=== PATIENT | male | born 1990 | race Asian ===

== ENCOUNTER 2021-07-17 15:23 | Emergency (ER) | payer OTHER ==
[~2021-07-17] VITALS: Ht 172.7 cm; Wt 56.7 kg
[2021-07-17 20:18] LABS: HEMATOCRIT 53.5 % (42.0-52.0); MEAN CORPUSCULAR HEMOGLOBIN 30.7 pg (27.0-33.0); MEAN CORPUSCULAR HGB CONC 33.8 g/dl (32.0-36.5); MEAN CORPUSCULAR VOLUME 90.8 fl (80.0-96.0); PLATELET COUNT, AUTOMATED 218 10^3/uL (150-450); RED BLOOD COUNT 5.89 10^6/uL (4.30-6.10); WHITE BLOOD COUNT 5.5 10^3/uL (4.0-10.0)
[2021-07-17 20:20] LABS: HEMOGLOBIN 18.1 g/dl (13.5-17.5)
[2021-07-17 20:49] LABS: AMPHETAMINES LEVEL URINE NEGATIVE (NEGATIVE); BARBITURATES URINE NEGATIVE (NEGATIVE); BENZODIAZEPINES URINE NEGATIVE (NEGATIVE); CANNABINOIDS URINE NEGATIVE (NEGATIVE); COCAINE METABOLITE URINE NEGATIVE (NEGATIVE); METHADONE URINE NEGATIVE (NEGATIVE); OPIATES URINE NEGATIVE (NEGATIVE); PHENCYCLIDINE URINE NEGATIVE (NEGATIVE)
[2021-07-17 21:00] LABS: ACETAMINOPHEN LEVEL < 2.0 UG/ML (10.0-30.0); ALBUMIN 3.8 GM/DL (3.2-5.2); ALT/SGPT 53 U/L (12-78); BILIRUBIN,DIRECT 0.4 MG/DL (0.0-0.2); BILIRUBIN,TOTAL 1.3 MG/DL (0.2-1.0); BLOOD UREA NITROGEN 7 MG/DL (7-18); CARBON DIOXIDE LEVEL 28 MEQ/L (21-32); CHLORIDE LEVEL 104 MEQ/L (98-107); CREATININE FOR GFR 0.91 MG/DL (0.70-1.30); ETHYL ALCOHOL (ETHANOL) 0.083 % (0.000-0.010); GLOMERULAR FILTRATION RATE > 60.0 (>60); GLUCOSE, FASTING 113 MG/DL (70-100); POTASSIUM SERUM 3.6 MEQ/L (3.5-5.1); SALICYLATE LEVEL < 1.7 MG/DL (5.0-30.0); SODIUM LEVEL 140 MEQ/L (136-145); THYROID STIMULATING HORMONE 0.873 uIU/ML (0.358-3.740); TOTAL PROTEIN 7.2 GM/DL (6.4-8.2)
[2021-07-17 22:35] VITALS: BP 158/79
== END 2021-07-17 22:50 | disposition home or self-care (01) ==
LOC: M ED 15:23
DX: F10.129 Alcohol abuse with intoxication, unspecified (principal); F32.A Depression, unspecified; E86.0 Dehydration; R74.01 Elevation of levels of liver transaminase levels

== ENCOUNTER 2022-01-22 08:44 | Inpatient (IN) | payer OTHER ==
[~2022-01-22] VITALS: Ht 172.7 cm; Wt 56.9 kg
[~2022-01-22 08:44] MED LIST: FOLI1TAB11 PO; SERT50TA29 PO; VITMTA PO
[2022-01-22 09:48] LABS: HEMATOCRIT 46.3 % (42.0-52.0); HEMOGLOBIN 15.8 g/dl (13.5-17.5); MEAN CORPUSCULAR HEMOGLOBIN 32.3 pg (27.0-33.0); MEAN CORPUSCULAR VOLUME 94.7 fl (80.0-96.0); RED BLOOD COUNT 4.89 10^6/uL (4.30-6.10); WHITE BLOOD COUNT 4.8 10^3/uL (4.0-10.0)
[2022-01-22 09:49] LABS: MEAN CORPUSCULAR HGB CONC 34.1 g/dl (32.0-36.5); PLATELET COUNT, AUTOMATED 288 10^3/uL (150-450)
[2022-01-22 10:22] LABS: RSV AMPLIFICATION NEGATIVE (NEGATIVE)
[2022-01-22 10:39] LABS: ACETAMINOPHEN LEVEL < 2.0 UG/ML (10.0-30.0); ALBUMIN 3.8 GM/DL (3.2-5.2); ALT/SGPT 101 U/L (12-78); BILIRUBIN,DIRECT 0.2 MG/DL (0.0-0.2); BILIRUBIN,TOTAL 0.4 MG/DL (0.2-1.0); BLOOD UREA NITROGEN 5 MG/DL (7-18); CALCIUM LEVEL 9.1 MG/DL (8.5-10.1); CARBON DIOXIDE LEVEL 31 MEQ/L (21-32); CHLORIDE LEVEL 107 MEQ/L (98-107); CREATININE FOR GFR 0.69 MG/DL (0.70-1.30); ETHYL ALCOHOL (ETHANOL) 0.266 % (0.000-0.010); GLOMERULAR FILTRATION RATE > 60.0 (>60); GLUCOSE, FASTING 93 MG/DL (70-100); POTASSIUM SERUM 3.6 MEQ/L (3.5-5.1); SALICYLATE LEVEL < 1.7 MG/DL (5.0-30.0); SODIUM LEVEL 142 MEQ/L (136-145); TOTAL PROTEIN 7.4 GM/DL (6.4-8.2)
[2022-01-22 16:06] LABS: AMPHETAMINES LEVEL URINE NEGATIVE (NEGATIVE); BARBITURATES URINE NEGATIVE (NEGATIVE); BENZODIAZEPINES URINE NEGATIVE (NEGATIVE); CANNABINOIDS URINE NEGATIVE (NEGATIVE); COCAINE METABOLITE URINE NEGATIVE (NEGATIVE); METHADONE URINE NEGATIVE (NEGATIVE); OPIATES URINE NEGATIVE (NEGATIVE); PHENCYCLIDINE URINE NEGATIVE (NEGATIVE)
[2022-01-22] MEDS ORDERED: HOME MED LIST COMPLETE! XX SCH (18:05)
[2022-01-23] MEDS ORDERED: MOM 30ML SUSPENSION UDC PO PRN (12:50)
[2022-01-23] MEDS ORDERED: traZODone 50 MG TAB PO PRN (12:50)
[2022-01-23] MEDS ORDERED: MAALOX 30 ML SUSP *UDC PO PRN (12:50)
[2022-01-23] MEDS ORDERED: IBUPROFEN 400MG TAB PO PRN (12:50)
[2022-01-23 16:01] VITALS: BP 148/94
[2022-01-24 06:18] VITALS: BP 127/81
[2022-01-24] MEDS: ESCITALOPRAM OXALATE 5MG TABLET (LEXAPRO) PO SCH (10:44)
[2022-01-24] MEDS: NICOTINE 14 MG/24 HR TRANSDERMAL TD SCH (10:44)
[2022-01-24 16:41] VITALS: BP 140/88
[2022-01-24 21:06] LABS: HEPATITIS B CORE ANTIBODY IGM NEGATIVE (NEGATIVE); HEPATITIS B SURFACE ANTIGEN NEGATIVE (NEGATIVE); HEPATITIS C VIRUS ABY INDEX < 0.0 INDEX (<0.8)
[2022-01-25 06:16] VITALS: BP 127/76
[2022-01-25] MEDS: ESCITALOPRAM OXALATE 5MG TABLET (LEXAPRO) PO SCH (09:44)
[2022-01-25] MEDS: NICOTINE 14 MG/24 HR TRANSDERMAL TD SCH (09:45)
[2022-01-25 18:18] VITALS: BP 138/91
[2022-01-26 06:01] VITALS: BP 127/84
[2022-01-26] MEDS: ESCITALOPRAM OXALATE 10 MG TAB (LEXAPRO) PO SCH (09:00)
[2022-01-26 09:20] VITALS: BP 127/84
[2022-01-26] MEDS: ESCITALOPRAM OXALATE 5MG TABLET (LEXAPRO) PO SCH (09:28)
[2022-01-26] MEDS: NICOTINE 14 MG/24 HR TRANSDERMAL TD SCH (09:28)
[2022-01-26 16:38] VITALS: BP 140/88
[2022-01-27 06:41] VITALS: BP 116/74
[2022-01-27] MEDS: ESCITALOPRAM OXALATE 10 MG TAB (LEXAPRO) PO SCH (08:51)
[2022-01-27] MEDS: NICOTINE 14 MG/24 HR TRANSDERMAL TD SCH (08:51)
[2022-01-27 16:17] VITALS: BP 138/86
[2022-01-28 06:32] VITALS: BP 121/83
[2022-01-28] MEDS: ESCITALOPRAM OXALATE 10 MG TAB (LEXAPRO) PO SCH (09:24)
[2022-01-28] MEDS: NICOTINE 14 MG/24 HR TRANSDERMAL TD SCH (09:24)
[2022-01-28 16:26] VITALS: BP 138/84
[2022-01-29 06:16] VITALS: BP 132/88
[2022-01-29] MEDS: NICOTINE 14 MG/24 HR TRANSDERMAL TD SCH (09:00)
[2022-01-29] MEDS: ESCITALOPRAM OXALATE 10 MG TAB (LEXAPRO) PO SCH (09:29)
[2022-01-29 17:21] VITALS: BP 117/73
[2022-01-30 06:19] VITALS: BP 110/73
[2022-01-30] MEDS: NICOTINE 14 MG/24 HR TRANSDERMAL TD SCH (09:00)
[2022-01-30] MEDS: ESCITALOPRAM OXALATE 10 MG TAB (LEXAPRO) PO SCH (09:25)
[2022-01-30 18:17] VITALS: BP 131/85
[2022-01-31 06:13] VITALS: BP 127/81
[2022-01-31] MEDS: NICOTINE 14 MG/24 HR TRANSDERMAL TD SCH (09:00)
[2022-01-31] MEDS: ESCITALOPRAM OXALATE 10 MG TAB (LEXAPRO) PO SCH (09:18)
[2022-01-31 18:18] VITALS: BP 130/79
[2022-01-31] MEDS: PRAZOSIN 1 MG CAP PO SCH (20:45)
[2022-02-01 06:43] VITALS: BP 122/58
[2022-02-01] MEDS: NICOTINE 14 MG/24 HR TRANSDERMAL TD SCH (09:00)
[2022-02-01] MEDS: ESCITALOPRAM OXALATE 10 MG TAB (LEXAPRO) PO SCH (09:01)
[2022-02-01 19:28] VITALS: BP 153/74
[2022-02-01 20:38] VITALS: BP 140/99
[2022-02-01] MEDS: PRAZOSIN 1 MG CAP PO SCH (20:38)
[2022-02-02 06:14] VITALS: BP 125/62
[2022-02-02] MEDS: NICOTINE 14 MG/24 HR TRANSDERMAL TD SCH (08:39)
[2022-02-02] MEDS: ESCITALOPRAM OXALATE 10 MG TAB (LEXAPRO) PO SCH (08:39)
[2022-02-02] MEDS ORDERED: LEXA1TAB PO (08:54)
[2022-02-02] MEDS ORDERED: NICO14PA TD (08:54)
[2022-02-02] MEDS ORDERED: MINI1CAP PO (08:54)
== END 2022-02-02 11:19 | disposition home or self-care (01) | DRG 885 ==
LOC: M ED 08:44 → M ED INP 01-23 12:46 → M PSY 01-23 15:56
PROVIDERS: ADMIT Student in an Organized Health Care Education/Training Program; ATTEND Student in an Organized Health Care Education/Training Program
DX: F32.1 Major depressive disorder, single episode, moderate (principal); R45.851 Suicidal ideations; R30.0 Dysuria; F10.10 Alcohol abuse, uncomplicated

== ENCOUNTER 2022-02-12 21:03 | Inpatient (IN) | payer OTHER ==
[~2022-02-12] VITALS: Ht 172.7 cm; Wt 56.8 kg
[~2022-02-12 21:03] MED LIST changes: +LEXA1TAB PO; +MINI1CAP PO; +NICO14PA TD
[2022-02-12 22:09] LABS: HEMATOCRIT 45.5 % (42.0-52.0); HEMOGLOBIN 15.5 g/dl (13.5-17.5); MEAN CORPUSCULAR HEMOGLOBIN 31.4 pg (27.0-33.0); MEAN CORPUSCULAR HGB CONC 34.1 g/dl (32.0-36.5); MEAN CORPUSCULAR VOLUME 92.3 fl (80.0-96.0); PLATELET COUNT, AUTOMATED 293 10^3/uL (150-450); RED BLOOD COUNT 4.93 10^6/uL (4.30-6.10); WHITE BLOOD COUNT 5.1 10^3/uL (4.0-10.0)
[2022-02-12 22:44] LABS: RSV AMPLIFICATION NEGATIVE (NEGATIVE)
[2022-02-12 23:03] LABS: ACETAMINOPHEN LEVEL < 2.0 UG/ML (10.0-30.0); ALBUMIN 3.6 GM/DL (3.2-5.2); ALT/SGPT 61 U/L (12-78); BILIRUBIN,DIRECT 0.1 MG/DL (0.0-0.2); BILIRUBIN,TOTAL 0.3 MG/DL (0.2-1.0); BLOOD UREA NITROGEN 2 MG/DL (7-18); CALCIUM LEVEL 8.6 MG/DL (8.5-10.1); CARBON DIOXIDE LEVEL 24 MEQ/L (21-32); CHLORIDE LEVEL 112 MEQ/L (98-107); CREATININE FOR GFR 0.68 MG/DL (0.70-1.30); ETHYL ALCOHOL (ETHANOL) 0.281 % (0.000-0.010); GLOMERULAR FILTRATION RATE > 60.0 (>60); GLUCOSE, FASTING 92 MG/DL (70-100); POTASSIUM SERUM 3.6 MEQ/L (3.5-5.1); SALICYLATE LEVEL < 1.7 MG/DL (5.0-30.0); SODIUM LEVEL 147 MEQ/L (136-145); TOTAL PROTEIN 7.1 GM/DL (6.4-8.2)
[2022-02-12 23:39] LABS: AMPHETAMINES LEVEL URINE NEGATIVE (NEGATIVE); BARBITURATES URINE NEGATIVE (NEGATIVE); BENZODIAZEPINES URINE NEGATIVE (NEGATIVE); CANNABINOIDS URINE NEGATIVE (NEGATIVE); COCAINE METABOLITE URINE NEGATIVE (NEGATIVE); METHADONE URINE NEGATIVE (NEGATIVE); OPIATES URINE NEGATIVE (NEGATIVE); PHENCYCLIDINE URINE NEGATIVE (NEGATIVE)
[2022-02-13] MEDS ORDERED: HOME MED LIST COMPLETE! XX SCH (02:40)
[2022-02-13] MEDS ORDERED: LEXA1TAB PO (02:40)
[2022-02-13] MEDS ORDERED: PRAZ1CAP PO (02:40)
[2022-02-13] MEDS ORDERED: PRAZOSIN 1 MG CAP PO SCH (09:00)
[2022-02-13] MEDS: ESCITALOPRAM OXALATE 10 MG TAB (LEXAPRO) PO SCH (09:45)
[2022-02-13] MEDS: PRAZOSIN 1 MG CAP PO SCH (21:00)
[2022-02-14] MEDS: ESCITALOPRAM OXALATE 10 MG TAB (LEXAPRO) PO SCH (13:00)
[2022-02-14] MEDS: PRAZOSIN 1 MG CAP PO SCH (20:33)
[2022-02-15] MEDS: ESCITALOPRAM OXALATE 10 MG TAB (LEXAPRO) PO SCH (10:11)
[2022-02-15] MEDS: PRAZOSIN 1 MG CAP PO SCH (20:13)
[2022-02-16] MEDS: ESCITALOPRAM OXALATE 10 MG TAB (LEXAPRO) PO SCH (11:04)
[2022-02-16] MEDS ORDERED: ACETAMINOPHEN TAB 650MG DOSE (2X325MG) PO PRN (12:15)
[2022-02-16] MEDS ORDERED: MAALOX 30 ML SUSP *UDC PO PRN (12:15)
[2022-02-16] MEDS ORDERED: hydrOXYzine 50 MG TAB PO PRN (12:15)
[2022-02-16] MEDS ORDERED: MOM 30ML SUSPENSION UDC PO PRN (12:15)
[2022-02-16 14:42] VITALS: BP 135/93
[2022-02-16] MEDS: PRAZOSIN 1 MG CAP PO SCH (20:11)
[2022-02-17] MEDS: ESCITALOPRAM OXALATE 10 MG TAB (LEXAPRO) PO SCH ×2 (09:31)
[2022-02-17 18:10] VITALS: BP 145/89
[2022-02-17 20:32] VITALS: BP 156/102
[2022-02-17] MEDS: PRAZOSIN 1 MG CAP PO SCH (20:32)
[2022-02-17 21:30] VITALS: BP 148/110
[2022-02-17 22:48] VITALS: BP 140/114
[2022-02-18] MEDS ORDERED: **hydrALAZINE** 10 MG TAB PO ONE
[2022-02-18 00:40] VITALS: BP 124/78
[2022-02-18 06:58] VITALS: BP 147/92
[2022-02-18] MEDS: ESCITALOPRAM OXALATE 10 MG TAB (LEXAPRO) PO SCH (09:56)
[2022-02-18 16:32] VITALS: BP 137/90
[2022-02-18] MEDS: PRAZOSIN 1 MG CAP PO SCH (20:11)
[2022-02-18] MEDS: traZODone 50 MG TAB PO PRN (23:00)
[2022-02-19 06:25] VITALS: BP 116/59
[2022-02-19] MEDS: ESCITALOPRAM OXALATE 10 MG TAB (LEXAPRO) PO SCH (09:12)
[2022-02-19 16:43] VITALS: BP 126/85
[2022-02-19 20:00] VITALS: BP 140/100
[2022-02-19] MEDS: PRAZOSIN 1 MG CAP PO SCH (20:00)
[2022-02-19] MEDS: traZODone 50 MG TAB PO PRN (20:01)
[2022-02-20 06:27] VITALS: BP 141/86
[2022-02-20] MEDS: ESCITALOPRAM OXALATE 10 MG TAB (LEXAPRO) PO SCH (08:37)
== END 2022-02-20 14:28 | disposition home or self-care (01) | DRG 885 ==
LOC: M ED 21:03 → M ED INP 02-16 12:13 → M PSY 02-16 14:55
PROVIDERS: ADMIT Student in an Organized Health Care Education/Training Program; ATTEND Psychiatry & Neurology Psychiatry
DX: F33.9 Major depressive disorder, recurrent, unspecified (principal); R45.851 Suicidal ideations; E87.0 Hyperosmolality and hypernatremia; F43.10 Post-traumatic stress disorder, unspecified; F10.10 Alcohol abuse, uncomplicated; F43.0 Acute stress reaction; Z79.899 Other long term (current) drug therapy

== ENCOUNTER 2022-04-21 12:23 | Emergency (ER) | payer OTHER ==
[~2022-04-21] VITALS: Ht 172.7 cm; Wt 56.9 kg
[~2022-04-21 12:23] MED LIST changes: +PRAZ1CAP PO
[2022-04-21 13:14] LABS: HEMATOCRIT 41.2 % (42.0-52.0); HEMOGLOBIN 13.9 g/dl (13.5-17.5); MEAN CORPUSCULAR HGB CONC 33.7 g/dl (32.0-36.5); PLATELET COUNT, AUTOMATED 276 10^3/uL (150-450); RED BLOOD COUNT 4.48 10^6/uL (4.30-6.10)
[2022-04-21 13:37] LABS: ETHYL ALCOHOL (ETHANOL) 0.182 % (0.000-0.010)
[2022-04-21 13:38] LABS: ACETAMINOPHEN LEVEL < 2.0 UG/ML (10.0-20.0); BILIRUBIN,DIRECT 0.2 MG/DL (<0.4); SALICYLATE LEVEL < 3.0 MG/DL (<30)
[2022-04-21 13:39] LABS: ALBUMIN 3.9 G/DL (3.2-5.2); ALKALINE PHOSPHATASE 66 U/L (46-116); ALT/SGPT 39 U/L (7.0-40); AST/SGOT 30 U/L (<34); BILIRUBIN,TOTAL 0.5 MG/DL (0.3-1.2); BLOOD UREA NITROGEN 9 MG/DL (9-23); CALCIUM LEVEL 8.8 MG/DL (8.5-10.1); CARBON DIOXIDE LEVEL 25 MMOL/L (20-31); CHLORIDE LEVEL 110 MMOL/L (98-107); CREATININE FOR GFR 0.64 MG/DL (0.70-1.30); GLOMERULAR FILTRATION RATE > 60.0 (>60); GLUCOSE, FASTING 87 MG/DL (60-100); POTASSIUM SERUM 3.9 MMOL/L (3.5-5.1); SODIUM LEVEL 143 MMOL/L (136-145); TOTAL PROTEIN 7.1 G/DL (5.7-8.2)
[2022-04-21 13:41] LABS: THYROID STIMULATING HORMONE 0.809 uIU/ML (0.55-4.78)
[2022-04-21 13:42] LABS: RSV AMPLIFICATION NEGATIVE (NEGATIVE)
[2022-04-21] MEDS ORDERED: HOME MED LIST COMPLETE! XX SCH (19:35)
[2022-04-21 19:53] LABS: BARBITURATES URINE NEGATIVE (NEGATIVE); COCAINE METABOLITE URINE NEGATIVE (NEGATIVE); METHADONE URINE NEGATIVE (NEGATIVE); OPIATES URINE NEGATIVE (NEGATIVE); PHENCYCLIDINE URINE NEGATIVE (NEGATIVE)
[2022-04-21 19:54] LABS: AMPHETAMINES LEVEL URINE NEGATIVE (NEGATIVE); BENZODIAZEPINES URINE NEGATIVE (NEGATIVE); CANNABINOIDS URINE NEGATIVE (NEGATIVE)
[2022-04-22] MEDS: ESCITALOPRAM OXALATE 10 MG TAB (LEXAPRO) PO SCH (09:14)
[2022-04-22] MEDS ORDERED: PRAZOSIN 1 MG CAP PO SCH (21:00)
[2022-04-22 23:15] VITALS: BP 116/71
[2022-04-23] MEDS: ESCITALOPRAM OXALATE 10 MG TAB (LEXAPRO) PO SCH (09:00)
[2022-04-23 13:47] VITALS: BP 128/74
== END 2022-04-23 14:23 | disposition home or self-care (01) ==
LOC: M ED 12:23 → EDBD 12:23 → M ED 04-23 14:23
DX: F10.129 Alcohol abuse with intoxication, unspecified (principal); F32.A Depression, unspecified; R45.851 Suicidal ideations; R94.31 Abnormal electrocardiogram [ECG] [EKG]; F17.200 Nicotine dependence, unspecified, uncomplicated; Z79.899 Other long term (current) drug therapy

== ENCOUNTER 2022-05-29 09:40 | Inpatient (IN) | payer OTHER ==
[~2022-05-29] VITALS: Ht 172.7 cm; Wt 59.2 kg
[2022-05-29 11:36] LABS: HEMOGLOBIN 15.6 g/dl (13.5-17.5); MEAN CORPUSCULAR HEMOGLOBIN 30.8 pg (27.0-33.0); MEAN CORPUSCULAR HGB CONC 34.7 g/dl (32.0-36.5); MEAN CORPUSCULAR VOLUME 88.8 fl (80.0-96.0); PLATELET COUNT, AUTOMATED 263 10^3/uL (150-450); RED BLOOD COUNT 5.07 10^6/uL (4.30-6.10)
[2022-05-29 12:07] LABS: ETHYL ALCOHOL (ETHANOL) 0.162 % (0.000-0.010)
[2022-05-29 12:08] LABS: ACETAMINOPHEN LEVEL < 2.0 UG/ML (10.0-20.0)
[2022-05-29 12:09] LABS: SALICYLATE LEVEL < 3.0 MG/DL (<30)
[2022-05-29 12:12] LABS: ALKALINE PHOSPHATASE 104 U/L (46-116); ALT/SGPT 55 U/L (7.0-40); AST/SGOT 50 U/L (<34); BILIRUBIN,DIRECT 0.2 MG/DL (<0.4); BILIRUBIN,TOTAL 0.9 MG/DL (0.3-1.2); BLOOD UREA NITROGEN 7 MG/DL (9-23); CALCIUM LEVEL 9.7 MG/DL (8.5-10.1); CARBON DIOXIDE LEVEL 26 MMOL/L (20-31); CHLORIDE LEVEL 104 MMOL/L (98-107); GLOMERULAR FILTRATION RATE > 60.0 (>60); GLUCOSE, FASTING 89 MG/DL (60-100); POTASSIUM SERUM 3.8 MMOL/L (3.5-5.1); SODIUM LEVEL 141 MMOL/L (136-145); THYROID STIMULATING HORMONE 2.915 uIU/ML (0.55-4.78); TOTAL PROTEIN 7.2 G/DL (5.7-8.2)
[2022-05-29] MEDS ORDERED: FOLI1TAB11 PO (12:28)
[2022-05-29] MEDS ORDERED: VITA100093 PO (12:28)
[2022-05-29] MEDS ORDERED: HOME MED LIST COMPLETE! XX SCH (12:30)
[2022-05-29 17:35] LABS: AMPHETAMINES LEVEL URINE NEGATIVE (NEGATIVE); BARBITURATES URINE NEGATIVE (NEGATIVE); BENZODIAZEPINES URINE NEGATIVE (NEGATIVE); CANNABINOIDS URINE NEGATIVE (NEGATIVE); COCAINE METABOLITE URINE NEGATIVE (NEGATIVE); METHADONE URINE NEGATIVE (NEGATIVE); OPIATES URINE NEGATIVE (NEGATIVE); PHENCYCLIDINE URINE NEGATIVE (NEGATIVE)
[2022-05-29] MEDS ORDERED: MOM 30ML SUSPENSION UDC PO PRN (17:45)
[2022-05-29] MEDS ORDERED: ACETAMINOPHEN TAB 650MG DOSE (2X325MG) PO PRN (17:45)
[2022-05-29] MEDS ORDERED: IBUPROFEN 400MG TAB PO PRN (17:45)
[2022-05-29] MEDS ORDERED: LORazepam 1 MG TAB PO PRN (17:45)
[2022-05-29] MEDS ORDERED: MAALOX 30 ML SUSP *UDC PO PRN (17:45)
[2022-05-29] MEDS ORDERED: diphenhydrAMINE 25MG CAP PO PRN (17:45)
[2022-05-29 19:05] VITALS: BP 148/98
[2022-05-29] MEDS ORDERED: LORazepam 2 MG TAB PO PRN (20:40)
[2022-05-29] MEDS: THIAMINE 100 MG TAB PO SCH (22:30)
[2022-05-30 06:45] VITALS: BP 114/80
[2022-05-30] MEDS: THIAMINE 100 MG TAB PO SCH ×2 (09:17→20:32)
[2022-05-30] MEDS: FOLIC ACID 1MG TAB PO SCH (09:17)
[2022-05-30] MEDS: MULTIVITAMINS/MINERALS THERAP 1 TAB PO SCH (09:17)
[2022-05-30] MEDS ORDERED: NICOTINE 14 MG/24 HR TRANSDERMAL TD PRN (10:55)
[2022-05-30] MEDS: ESCITALOPRAM OXALATE 10 MG TAB (LEXAPRO) PO SCH (11:07)
[2022-05-30 14:17] VITALS: BP 125/69
[2022-05-30 16:22] VITALS: BP 124/72
[2022-05-30] MEDS: traZODone 50 MG TAB PO PRN (20:32)
[2022-05-30] MEDS: PRAZOSIN 1 MG CAP PO SCH (20:32)
[2022-05-30 22:17] VITALS: BP 114/72
[2022-05-31 06:00] VITALS: BP 123/65
[2022-05-31 06:28] VITALS: BP 123/65
[2022-05-31] MEDS: MULTIVITAMINS/MINERALS THERAP 1 TAB PO SCH (09:49)
[2022-05-31] MEDS: FOLIC ACID 1MG TAB PO SCH (09:49)
[2022-05-31] MEDS: THIAMINE 100 MG TAB PO SCH ×2 (09:50→20:08)
[2022-05-31] MEDS: ESCITALOPRAM OXALATE 10 MG TAB (LEXAPRO) PO SCH (09:50)
[2022-05-31] MEDS ORDERED: PILL CUTTER 1 EACH XX PRN (12:30)
[2022-05-31] MEDS: NALTREXONE 50 MG TAB PO SCH (12:31)
[2022-05-31 13:58] LABS: BLOOD UREA NITROGEN 10 MG/DL (9-23); CALCIUM LEVEL 8.9 MG/DL (8.5-10.1); CARBON DIOXIDE LEVEL 27 MMOL/L (20-31); CHLORIDE LEVEL 103 MMOL/L (98-107); CREATININE FOR GFR 0.74 MG/DL (0.70-1.30); GLOMERULAR FILTRATION RATE > 60.0 (>60); GLUCOSE, FASTING 94 MG/DL (60-100); POTASSIUM SERUM 3.9 MMOL/L (3.5-5.1); SODIUM LEVEL 138 MMOL/L (136-145)
[2022-05-31 14:47] VITALS: BP 129/70
[2022-05-31 18:34] VITALS: BP 148/91
[2022-05-31 20:08] VITALS: BP 146/99
[2022-05-31] MEDS: traZODone 50 MG TAB PO PRN (20:08)
[2022-05-31] MEDS: PRAZOSIN 1 MG CAP PO SCH (20:08)
[2022-05-31 21:50] VITALS: BP 129/70
[2022-06-01 06:36] VITALS: BP 126/65
[2022-06-01] MEDS: ESCITALOPRAM OXALATE 10 MG TAB (LEXAPRO) PO SCH (08:49)
[2022-06-01] MEDS: NALTREXONE 50 MG TAB PO SCH (08:49)
[2022-06-01] MEDS ORDERED: NICO14PA TD (09:20)
[2022-06-01] MEDS ORDERED: LEXA1TAB PO (09:20)
[2022-06-01] MEDS ORDERED: MINI1CAP PO (09:20)
[2022-06-01] MEDS ORDERED: NALT50TA4 PO (09:20)
[2022-06-01] MEDS ORDERED: TRAZ-252 PO (09:20)
== END 2022-06-01 11:15 | disposition home or self-care (01) | DRG 885 ==
LOC: M ED 09:40 → M ED INP 18:10 → M PSY 18:37
PROVIDERS: ADMIT Student in an Organized Health Care Education/Training Program; ATTEND Student in an Organized Health Care Education/Training Program
DX: F33.9 Major depressive disorder, recurrent, unspecified (principal); R45.851 Suicidal ideations; Z71.41 Alcohol abuse counseling and surveillance of alcoholic; Z71.51 Drug abuse counseling and surveillance of drug abuser; F43.0 Acute stress reaction; R74.01 Elevation of levels of liver transaminase levels; Z20.822 Contact with and (suspected) exposure to COVID-19; Z79.899 Other long term (current) drug therapy

== ENCOUNTER 2022-06-12 04:03 | Emergency (ER) | payer OTHER ==
[~2022-06-12] VITALS: Ht 172.7 cm; Wt 61.7 kg
[~2022-06-12 04:03] MED LIST changes: +NALT50TA4 PO; +TRAZ-252 PO; +VITA100093 PO
[2022-06-12 04:18] VITALS: BP 120/80
== END 2022-06-12 07:13 | disposition left against medical advice (07) ==
LOC: EDBD 04:03 → M ED 04:03
DX: Z53.21 Procedure and treatment not carried out due to patient leaving prior to being seen by health care provider (principal)

== ENCOUNTER → 2022-09-06 | Outpatient (CLI) | payer OTHER | LOC: M PLAIMG 13:04 | DX: R06.02 Shortness of breath (principal); M25.531 Pain in right wrist; M25.532 Pain in left wrist ==

== ENCOUNTER 2023-01-12 20:30 | Emergency (ER) | payer OTHER ==
[2023-01-12 20:46] VITALS: TEMP 98
[2023-01-12 21:36] LABS: BASO % 0.4 % (0.0-1.0); EOS # 0.2 10^3/uL (0.0-0.5); EOS % 3.2 % (0.0-3.0); HEMATOCRIT 44.9 % (42.0-52.0); HEMOGLOBIN 15.4 g/dl (13.5-17.5); LYMPH # 3.3 10^3/uL (1.5-5.0); LYMPH % 47.7 % (24.0-44.0); MEAN CORPUSCULAR HEMOGLOBIN 30.1 pg (27.0-33.0); MEAN CORPUSCULAR HGB CONC 34.3 g/dl (32.0-36.5); MEAN CORPUSCULAR VOLUME 87.9 fl (80.0-96.0); MONO # 0.6 10^3/uL (0.0-0.8); NEUTROPHILS # 2.8 10^3/uL (1.5-8.5); NEUTROPHILS % 40.3 % (36.0-66.0); PLATELET COUNT, AUTOMATED 294 10^3/uL (150-450); RED BLOOD COUNT 5.11 10^6/uL (4.30-6.10); WHITE BLOOD COUNT 6.9 10^3/uL (4.0-10.0)
[2023-01-12 21:50] LABS: LIPASE 50 U/L (12-53)
[2023-01-12 21:53] LABS: ALKALINE PHOSPHATASE 94 U/L (46-116); ALT/SGPT 26 U/L (7.0-40); AST/SGOT 19 U/L (<34); BILIRUBIN,DIRECT < 0.1 MG/DL (<0.4); BILIRUBIN,TOTAL 0.2 MG/DL (0.3-1.2); BLOOD UREA NITROGEN 10 MG/DL (9-23); CALCIUM LEVEL 8.8 MG/DL (8.5-10.1); CARBON DIOXIDE LEVEL 26 MMOL/L (20-31); CHLORIDE LEVEL 108 MMOL/L (98-107); CREATININE FOR GFR 0.79 MG/DL (0.70-1.30); GLOMERULAR FILTRATION RATE > 60.0 (>60); GLUCOSE, FASTING 110 MG/DL (60-100); POTASSIUM SERUM 3.9 MMOL/L (3.5-5.1); SODIUM LEVEL 144 MMOL/L (136-145); TOTAL PROTEIN 7.1 G/DL (5.7-8.2)
[2023-01-12] MEDS ORDERED: ISOVUE-370 76% 100ML VIAL As Ordered ONE (23:59)
[2023-01-13] MEDS ORDERED: [UNRECOGNIZED DRUG - CODE] PR (01:39)
[2023-01-13] MEDS ORDERED: rectiv TOP (01:39)
[2023-01-13] MEDS ORDERED: COLA100C5 PO (01:39)
[2023-01-13 01:53] VITALS: BP 134/91; O2SAT 98
== END 2023-01-13 01:53 | disposition home or self-care (01) ==
LOC: M ED 20:30 → EDBD 20:30 → M ED 01-13 01:53
DX: K60.2 Anal fissure, unspecified (principal); F41.9 Anxiety disorder, unspecified; F32.A Depression, unspecified; F10.10 Alcohol abuse, uncomplicated; F32.9 Major depressive disorder, single episode, unspecified; Z79.83 Long term (current) use of bisphosphonates; Z79.899 Other long term (current) drug therapy
CPT/HCPCS: 36415; 74177; 80048; 80076; 83690; 85025; 99284; Q9967

== ENCOUNTER 2023-03-08 20:22 | Emergency (ER) | payer OTHER ==
[~2023-03-08] VITALS: Ht 172.7 cm; Wt 60.8 kg
[~2023-03-08 20:22] MED LIST changes: +COLA100C5 PO; +[UNRECOGNIZED DRUG - CODE] PR; +rectiv TOP
[2023-03-08 21:16] LABS: HEMATOCRIT 49.7 % (42.0-52.0); HEMOGLOBIN 17.1 g/dl (13.5-17.5); MEAN CORPUSCULAR HEMOGLOBIN 30.4 pg (27.0-33.0); MEAN CORPUSCULAR HGB CONC 34.4 g/dl (32.0-36.5); MEAN CORPUSCULAR VOLUME 88.4 fl (80.0-96.0); PLATELET COUNT, AUTOMATED 330 10^3/uL (150-450); RED BLOOD COUNT 5.62 10^6/uL (4.30-6.10); WHITE BLOOD COUNT 8.1 10^3/uL (4.0-10.0)
[2023-03-08 21:41] LABS: ETHYL ALCOHOL (ETHANOL) 0.223 % (0.000-0.010)
[2023-03-08 21:43] LABS: SALICYLATE LEVEL < 3.0 MG/DL (<30)
[2023-03-08 21:44] LABS: THYROID STIMULATING HORMONE 1.406 uIU/ML (0.55-4.78)
[2023-03-08 21:50] LABS: AMPHETAMINES LEVEL URINE NEGATIVE (NEGATIVE); BARBITURATES URINE NEGATIVE (NEGATIVE); COCAINE METABOLITE URINE NEGATIVE (NEGATIVE); METHADONE URINE NEGATIVE (NEGATIVE)
[2023-03-08 21:51] LABS: BENZODIAZEPINES URINE NEGATIVE (NEGATIVE); CANNABINOIDS URINE NEGATIVE (NEGATIVE); OPIATES URINE NEGATIVE (NEGATIVE); PHENCYCLIDINE URINE NEGATIVE (NEGATIVE)
[2023-03-08] MEDS ORDERED: PRAZ1CAP PO (21:58)
[2023-03-08] MEDS ORDERED: LEXA5TAB13 PO (21:58)
[2023-03-08] MEDS ORDERED: TRAZ-257 PO (21:58)
[2023-03-08] MEDS ORDERED: HOME MED LIST COMPLETE! XX SCH (22:00)
[2023-03-08 22:12] LABS: ALBUMIN 4.4 G/DL (3.2-5.2); ALKALINE PHOSPHATASE 98 U/L (46-116); ALT/SGPT 38 U/L (7.0-40); AST/SGOT 24 U/L (<34); BILIRUBIN,DIRECT 0.3 MG/DL (<0.4); BILIRUBIN,TOTAL 0.9 MG/DL (0.3-1.2); BLOOD UREA NITROGEN < 5 MG/DL (9-23); CALCIUM LEVEL 9.7 MG/DL (8.5-10.1); CARBON DIOXIDE LEVEL 25 MMOL/L (20-31); CHLORIDE LEVEL 105 MMOL/L (98-107); GLOMERULAR FILTRATION RATE > 60.0 (>60); GLUCOSE, FASTING 79 MG/DL (60-100); POTASSIUM SERUM 3.9 MMOL/L (3.5-5.1); SODIUM LEVEL 141 MMOL/L (136-145); TOTAL PROTEIN 7.8 G/DL (5.7-8.2)
[2023-03-09 19:05] VITALS: BP 128/83; TEMP 97.6; O2SAT 98
== END 2023-03-09 19:10 | disposition short-term general hospital (02) ==
LOC: M ED 20:22
DX: R45.851 Suicidal ideations (principal); F32.A Depression, unspecified; F10.10 Alcohol abuse, uncomplicated; F12.10 Cannabis abuse, uncomplicated; F51.01 Primary insomnia; Z79.83 Long term (current) use of bisphosphonates; Z79.899 Other long term (current) drug therapy

== ENCOUNTER 2023-04-25 16:57 | Emergency (ER) | payer OTHER ==
[~2023-04-25] VITALS: Ht 172.7 cm; Wt 61.4 kg
[~2023-04-25 16:57] MED LIST changes: +LEXA5TAB13 PO; +TRAZ-257 PO
[2023-04-25] MEDS ORDERED: LEXA1TAB2 (17:12)
[2023-04-25] MEDS ORDERED: PRAZ2CAP (17:12)
[2023-04-25 17:34] LABS: HEMATOCRIT 44.1 % (42.0-52.0); HEMOGLOBIN 15.3 g/dl (13.5-17.5); MEAN CORPUSCULAR HEMOGLOBIN 30.4 pg (27.0-33.0); MEAN CORPUSCULAR HGB CONC 34.7 g/dl (32.0-36.5); MEAN CORPUSCULAR VOLUME 87.5 fl (80.0-96.0); PLATELET COUNT, AUTOMATED 294 10^3/uL (150-450); RED BLOOD COUNT 5.04 10^6/uL (4.30-6.10); WHITE BLOOD COUNT 7.2 10^3/uL (4.0-10.0)
[2023-04-25 18:03] LABS: ALBUMIN 4.2 G/DL (3.2-5.2); ALKALINE PHOSPHATASE 78 U/L (46-116); ALT/SGPT 49 U/L (7.0-40); AST/SGOT 25 U/L (<34); BILIRUBIN,DIRECT 0.1 MG/DL (<0.4); BILIRUBIN,TOTAL 0.4 MG/DL (0.3-1.2); BLOOD UREA NITROGEN 7 MG/DL (9-23); CARBON DIOXIDE LEVEL 29 MMOL/L (20-31); CHLORIDE LEVEL 110 MMOL/L (98-107); CREATININE FOR GFR 0.69 MG/DL (0.70-1.30); GLOMERULAR FILTRATION RATE > 60.0 (>60); GLUCOSE, FASTING 108 MG/DL (60-100); POTASSIUM SERUM 3.6 MMOL/L (3.5-5.1); SALICYLATE LEVEL < 3.0 MG/DL (<30); SODIUM LEVEL 146 MMOL/L (136-145); TOTAL PROTEIN 7.2 G/DL (5.7-8.2)
[2023-04-25 18:05] LABS: THYROID STIMULATING HORMONE 1.028 uIU/ML (0.55-4.78)
[2023-04-25] MEDS ORDERED: HOME MED LIST COMPLETE! XX SCH (19:35)
[2023-04-25 23:01] LABS: AMPHETAMINES LEVEL URINE NEGATIVE (NEGATIVE); BARBITURATES URINE NEGATIVE (NEGATIVE); BENZODIAZEPINES URINE NEGATIVE (NEGATIVE); CANNABINOIDS URINE NEGATIVE (NEGATIVE); COCAINE METABOLITE URINE NEGATIVE (NEGATIVE); METHADONE URINE NEGATIVE (NEGATIVE); OPIATES URINE NEGATIVE (NEGATIVE); PHENCYCLIDINE URINE NEGATIVE (NEGATIVE)
[2023-04-26 11:20] VITALS: BP 134/78; TEMP 97.6; O2SAT 99
[2023-04-26] MEDS ORDERED: ESCITALOPRAM OXALATE 10 MG TAB (LEXAPRO) PO SCH (21:00)
[2023-04-26] MEDS ORDERED: traZODone 100 MG TAB PO SCH (21:00)
[2023-04-26] MEDS ORDERED: PRAZOSIN 1 MG CAP PO SCH (21:00)
== END 2023-04-26 11:50 | disposition home or self-care (01) ==
LOC: M ED 16:57
DX: F10.129 Alcohol abuse with intoxication, unspecified (principal); F32.A Depression, unspecified; Z79.899 Other long term (current) drug therapy